=== PATIENT | female | born 1970 | race Hispanic/Latino ===

== ENCOUNTER 2020-06-09 11:11 | Outpatient (CLI) | payer BC | END 2020-06-09 11:12 | disposition home or self-care (01) | LOC: CSHMAMMO 11:11 | PROVIDERS: ATTEND Family Medicine Sports Medicine | DX: Z12.31 Encounter for screening mammogram for malignant neoplasm of breast (principal) | CPT/HCPCS: 77063; 77067 ==

== ENCOUNTER 2021-03-31 11:30 | Outpatient (CLI) | payer BC ==
[2021-04-01 13:26] LABS: SARS-CoV-2 PCR by NAA Not Detected (NotDetected)
== END 2021-03-31 11:31 | disposition home or self-care (01) ==
LOC: CSHLAB 11:30
PROVIDERS: ATTEND Surgery
DX: Z20.822 Contact with and (suspected) exposure to COVID-19 (principal); K21.9 Gastro-esophageal reflux disease without esophagitis
CPT/HCPCS: U0003; U0005

== ENCOUNTER 2021-04-05 06:17 | Day surgery (SDC) | payer BC ==
[2021-04-01 10:16] VITALS: BMI 34.1
[2021-04-05] MEDS ORDERED: Lidocaine 1% MPF 2 ML VIAL ONE (06:30)
[2021-04-05] MEDS ORDERED: HYDROmorphone 0.5 MG/0.5 ML SYRINGE ONE (06:46)
[2021-04-05] MEDS ORDERED: PROPOFOL 20 ML ONE ×2 (06:51→07:37)
== END 2021-04-05 08:41 | disposition home or self-care (01) ==
LOC: CSHSDC 06:17
PROVIDERS: ATTEND Surgery
PROC: 0DB68ZZ Excision of Stomach, Via Natural or Artificial Opening Endoscopic (ICD-10-PCS; principal; 2021-04-05)
DX: K29.50 Unspecified chronic gastritis without bleeding (principal); E66.01 Morbid (severe) obesity due to excess calories; Z68.36 Body mass index [BMI] 36.0-36.9, adult; E11.9 Type 2 diabetes mellitus without complications; E78.5 Hyperlipidemia, unspecified; I10 Essential (primary) hypertension; Z79.899 Other long term (current) drug therapy; Z79.84 Long term (current) use of oral hypoglycemic drugs; Z87.891 Personal history of nicotine dependence
CPT/HCPCS: 88305; 88312; J1170; J2704

== ENCOUNTER 2023-04-27 12:57 | Outpatient (CLI) | payer BC | END 2023-04-27 12:58 | disposition home or self-care (01) | LOC: CSHMAMMO 12:57 | PROVIDERS: ATTEND Family Medicine Sports Medicine | DX: Z12.31 Encounter for screening mammogram for malignant neoplasm of breast (principal); Z91.89 Other specified personal risk factors, not elsewhere classified | CPT/HCPCS: 77063; 77067 ==